=== PATIENT | female | born 1955 | race Caucasian/White ===

== ENCOUNTER 2018-01-17 08:03 | Outpatient (CLI) | payer MEDICARE ==
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
[2018-01-17] MEDS ORDERED: Iopamidol 370 76% 100 ML VIAL ONE (13:21)
== END 2018-01-17 08:04 | disposition home or self-care (01) ==
LOC: CT 08:03
PROVIDERS: ATTEND Family Medicine
DX: R10.30 Lower abdominal pain, unspecified (principal); Z98.890 Other specified postprocedural states
CPT/HCPCS: 74177

== ENCOUNTER 2018-03-18 13:55 | Outpatient (CLI) | payer MEDICARE | END 2018-03-18 13:56 | disposition home or self-care (01) | LOC: BICMAMMO 13:55 | DX: Z12.31 Encounter for screening mammogram for malignant neoplasm of breast (principal); M81.0 Age-related osteoporosis without current pathological fracture; M85.88 Other specified disorders of bone density and structure, other site; Z80.3 Family history of malignant neoplasm of breast | CPT/HCPCS: 77063; 77067; 77080 ==

== ENCOUNTER 2018-09-08 18:34 | Emergency (ER) | payer MEDICARE ==
[2018-09-08] MEDS ORDERED: HYDROcodone/Acetaminophen 5/325 mg Tablet ONE (20:13)
--- NOTE | 2018-09-08 20:30 | CT ---
CT BRAIN WITHOUT CONTRAST: HISTORY: History of fall with head injury. COMPARISON: 08/20/2008 FINDINGS: The area of encephalomalacia involving both frontal lobes is stable. No definite acute infarct, hemo rrhage, or hydrocephalus is present. The septum pellucidum and third ventricle are midline. The sku ll and extracranial soft tissues appear within normal limits. There is stable hyperdense material se en within the left ear, which is nonspecific. IMPRESSION: 1. No acute intracranial abnormality. 2. Stable area of encephalomalacia involving both frontal lobes. POS: [facility]
--- NOTE | 2018-09-08 20:33 | CT ---
CT CERVICAL SPINE WITHOUT CONTRAST: INDICATIONS: History of fall with neck pain. COMPARISON: None. FINDINGS: There is severe spondylosis of the cervical spine. No acute fracture or subluxation is evident. The craniocervical junction appears within normal limits. Prevertebral soft tissues are normal appearin g. IMPRESSION: No acute osseous abnormality. POS: [facility]
--- NOTE | 2018-09-08 20:34 | RAD ---
AP VIEW PELVIS: INDICATIONS: Fall with right hip pain. COMPARISON: None. FINDINGS: No acute fracture or subluxation is evident. There is spinal instrumentation at L5-S1. There is pos terolateral interbody fusion from L4 through S1. There is mild degenerative change within both hips. IMPRESSION: No acute osseous abnormality. POS: [facility]
--- NOTE | 2018-09-08 20:37 | RAD ---
RIGHT HIP TWO VIEWS: INDICATIONS: Fall with right hip pain. COMPARISON: None. FINDINGS: No acute fracture or subluxation is evident. There is mild degenerative change of the right hip. Th ere is extensive post surgical change of the lower lumbar spine. IMPRESSION: No acute osseous abnormality. POS: [facility]
--- NOTE | 2018-09-08 20:46 | RAD ---
CHEST TWO VIEWS: HISTORY: The patient slipped and fell. Post traumatic pain. COMPARISON: 03/12/2008 FINDINGS: Normal cardiac silhouette. Pulmonary vessels and hilum are normal. Costophrenic angles are clear. No consolidation or mass. No pneumothorax or osseous abnormalities. Lumbar fusion hardware is incompletely evaluated. IMPRESSION: No acute cardiopulmonary process. POS: [facility]
--- NOTE | 2018-09-08 20:48 | RAD ---
LUMBAR SPINE THREE VIEWS: INDICATIONS: Fall with low back pain. COMPARISON: 08/26/2009 FINDINGS: There is posterolateral spinal fusion from the visualized T10 through the S1 vertebral level. Carlin ctomy changes are seen at L5-S1. There is posterolateral spinal instrumentation at L5-S1. No acute fracture or subluxation is evident. There is diffuse osteopenia. IMPRESSION: 1. Stable multilevel thoracolumbar spinal fusion and instrumentation. 2. No acute fracture or subluxation is demonstrated. POS: [facility]
--- NOTE | 2018-09-08 20:51 | RAD ---
THORACIC SPINE THREE VIEWS: INDICATIONS: Fall with back pain. COMPARISON: Prior exam dated 10/07/2009. FINDINGS: The posterolateral spinal fusion involving the thoracolumbar spine, extending from approximately the T10 vertebral level through the sacrum is similar appearing. There is diffuse osteopenia. Mild supe rior endplate irregularity of the suspected T6 vertebral level is stable. Multilevel spondylosis of the thoracic spine is similar appearing. IMPRESSION: No acute osseous abnormality. POS: [facility]
== END 2018-09-08 22:33 | disposition home or self-care (01) ==
LOC: ERS 18:34
DX: S09.90XA Unspecified injury of head, initial encounter (principal); M54.9 Dorsalgia, unspecified; M25.551 Pain in right hip; E03.9 Hypothyroidism, unspecified; I10 Essential (primary) hypertension; K21.9 Gastro-esophageal reflux disease without esophagitis; F41.9 Anxiety disorder, unspecified; F32.9 Major depressive disorder, single episode, unspecified; Z79.899 Other long term (current) drug therapy; W22.8XXA Striking against or struck by other objects, initial encounter; Y92.091 Bathroom in other non-institutional residence as the place of occurrence of the external cause
CPT/HCPCS: 70450; 71046; 72072; 72100; 72125; 72170

== ENCOUNTER 2018-11-27 14:34 | Outpatient (CLI) | payer MEDICARE ==
--- NOTE | 2018-11-27 16:46 | RAD ---
KUB: 11/27/18 INDICATION: History of renal stones. COMPARISON: Prior CT of the abdomen and pelvis dated 01/17/18. No suspicious calcification is evident. There is mild amount of retained stool in the colon. Thoracol umbar spinal fusion is similar appearing. Instrumentation at L5-S1 is similar appearing. Lung bases a re clear. Bowel gas pattern is unobstructed. IMPRESSION: No suspicious calcifications POS: [facility]
== END 2018-11-27 14:35 | disposition home or self-care (01) ==
LOC: RAD 14:34
PROVIDERS: ATTEND Urology
DX: N20.0 Calculus of kidney (principal); R31.9 Hematuria, unspecified
CPT/HCPCS: 74018; 81001; 87086; 88112

== ENCOUNTER 2019-03-20 12:40 | Outpatient (CLI) | payer MEDICARE ==
--- NOTE | 2019-03-20 13:59 | MMO ---
Bilateral MAMMO Bilat Screen [facility]. CLINICAL HISTORY: Patient is 63 years old and is seen for screening. The patient has the following family history of breast cancer: 2 maternal aunts. The patient has no personal history of cancer. VIEWS: The views performed were: bilateral craniocaudal with tomosynthesis and bilateral mediolateral oblique with tomosynthesis. FILMS COMPARED: The present examination has been compared to prior imaging studies performed at [facility] on 07/02/2007, 07/08/2008, 03/14/2016, 03/15/2017 and 03/18/2018. MAMMOGRAM FINDINGS: The breasts are extremely dense, which may lower the sensitivity of mammography. There are no suspicious masses, suspicious calcifications, or new areas of architectural distortion. IMPRESSION: THERE IS NO MAMMOGRAPHIC EVIDENCE OF MALIGNANCY. A ROUTINE FOLLOW-UP MAMMOGRAM IN 1 YEAR IS RECOMMENDED. THE RESULTS OF THIS EXAM WERE SENT TO THE PATIENT. ACR BI-RADS Category 1 - Negative MAMMOGRAPHY NOTE: 1. A negative mammogram report should not delay a biopsy if a dominant of clinically suspicious mass is present. 2. Approximately 10% to 15% of breast cancers are not detected by mammography. 3. Adenosis and dense breasts may obscure an underlying neoplasm.
== END 2019-03-20 12:41 | disposition home or self-care (01) ==
LOC: BICMAMMO 12:40
DX: Z12.31 Encounter for screening mammogram for malignant neoplasm of breast (principal); Z80.3 Family history of malignant neoplasm of breast
CPT/HCPCS: 77063; 77067

== ENCOUNTER 2019-06-27 09:27 | Outpatient (CLI) | payer MEDICARE ==
[2019-06-27 15:04] LABS: #Basophils 0.1 thou/uL (0.0-0.2); #Eosinphils 0.1 thou/uL (0.0-0.7); #Lymphocytes 1.5 thou/uL (1.20-3.40); #Monocytes 0.4 thou/uL (0.11-0.59); #Neutrophils 2.3 thou/uL (1.40-6.50); %Basophils 1.2 % (0.0-1.0); %Eosinophils 1.9 % (0.0-10.0); %Lymphocytes 34.4 % (21.0-51.0); %Monocytes 10.2 % (0.0-10.0); %Neutrophils 52.3 % (42.0-75.0); Hemoglobin 13.2 g/dL (12.0-16.0); Mean Corpuscular HGB CONC 33.2 g/dL (32.0-36.0); Mean Corpuscular Hemoglobin 33.3 pg (27.0-31.0); Mean Platelet Volume 6.5 fL (7.4-10.4); Platelet Count 259 thou/uL (130-400); RBC Distribution Width 11.9 % (11.5-14.5); Red Blood Cell (RBC) Count 3.96 mill/uL (4.20-5.40); White Blood Cell (WBC) Count 4.3 thou/uL (4.8-10.8)
[2019-06-27 15:17] LABS: Bilirubin Negative (Negative); Blood, Urine Negative (Negative); Clarity Clear (Clear); Glucose, Urine (Dipstick) Normal (Negative); Leukocyte Negative Leu/uL (Negative); Nitrite Negative (Negative); Protein, Urine (Dipstick) Negative (Neg-Trace); RBC/HPF 0-3 HPF (0-3); Squamous Epithelial None Seen HPF (0-3); Urobilinogen Normal mg/dL (Less than 2); WBC/HPF 0-3 HPF (0-3)
[2019-06-27 15:26] LABS: Bacteria/HPF None Seen HPF (None Seen)
--- NOTE | 2019-06-27 16:33 | EKG ---
Test Reason : Blood Pressure : / mmHG Vent. Rate : 076 BPM Atrial Rate : 076 BPM P-R Int : 136 ms QRS Dur : 082 ms QT Int : 380 ms P-R-T Axes : 084 064 063 degrees QTc Int : 427 ms Normal sinus rhythm Normal ECG When compared with ECG of 14-APR-2016 09:41, (Unconfirmed) Vent. rate has decreased BY 40 BPM T wave amplitude has increased in Lateral leads Confirmed by SISSY HOFFMAN, SPaco ([id number]) on 06/27/2019 4:33:07 PM Referred By: FREEMAN Confirmed By:DR. Arun SHEEHAN MD
[2019-06-30 11:58] LABS: CCP IgG Antibody 0.8 EliAU/mL (<7 Negative); EliA RAS New Method **** NEW METHOD ****; Rheumatoid Factor IgM Antibody Less than 0.5 IU/mL (<3.5 Negative)
[2019-06-30 14:09] LABS: Lyme IgG/IgM AB <0.91 ISR (0.00-0.90)
== END 2019-06-27 09:28 | disposition home or self-care (01) ==
LOC: LABBT 09:27
PROVIDERS: ATTEND Orthopaedic Surgery Hand Surgery
DX: Z01.818 Encounter for other preprocedural examination (principal); S63.203A Unspecified subluxation of left middle finger, initial encounter
CPT/HCPCS: 81001; 83520; 85025; 85652; 86200; 86618; 93005; 93010

== ENCOUNTER 2019-06-30 13:09 | Day surgery (SDC) | payer MEDICARE ==
[2019-06-27 14:02] VITALS: BMI 20.1
[2019-06-30] MEDS ORDERED: Midazolam HCl 2 mg/2 ml Vial ONE (15:11)
[2019-06-30] MEDS ORDERED: Clindamycin/D5W 600 mg/50 ml Premix Bag ONE (15:47)
[2019-06-30] MEDS ORDERED: Bupivacaine PF 0.5% 30 ML VIAL ONE (17:38)
[2019-06-30] MEDS ORDERED: Bacitracin Zinc Ointment 30 gm TUBE ONE (17:38)
[2019-06-30] MEDS ORDERED: Sodium Chloride 0.9% 0 ML ONE (17:38)
[2019-06-30] MEDS ORDERED: Fentanyl 100 MCG/2 ML VIAL ONE ×2 (19:14→21:50)
[2019-06-30] MEDS ORDERED: Ondansetron PF 4 MG/2 ML Vial ONE (22:07)
[2019-06-30] MEDS ORDERED: HYDROcodone/Acetaminophen 5/325 mg Tablet ONE (22:33)
--- NOTE | 2019-07-01 04:48 | OP ---
DATE OF PROCEDURE: 06/30/2019 PREOPERATIVE DIAGNOSIS: Left middle finger volar plate rupture with dislocation of proximal interphalangeal joint, left middle finger. POSTOPERATIVE DIAGNOSIS: Dislocatable, direct dorsally without complete collateral ligament tear, but complete volar plate laceration. PROCEDURES PERFORMED: 1. Open treatment of dislocation of proximal interphalangeal joint, left middle finger. 2. Open volar plate reconstruction back to bone of approximately 85% and 15% repair. 3. C-arm supervision. COMPLICATIONS: None. IMPLANT: [place], mini (approximately 5-mm anchor). TOURNIQUET TIME: 48 minutes. ESTIMATED BLOOD LOSS: Less than 20 mL. INJECTABLE: 20 mL of 0.5% Marcaine, 10 mL prior to procedure and 10 after the procedure. DESCRIPTION OF PROCEDURE: After successful general LMA technique, the limb was prepped and draped. We injected the first 10 mL. I outlined a Dania-type incision and centered on the PIP joint palmarly. After exsanguination of the limb and inflation of the tourniquet to 250 mmHg pressure, we entered the incision, carried through skin and subcutaneous tissue, identified the neurovascular bundles and protected them. We then entered the sheath just proximal to the A3 glory, and found the dissection down to volar plate. The collateral ligament did not appear to be ruptured off bone. We then dissected down the volar plate and saw that it was completely lifted off the neck and articular surface of the proximal phalanx at the PIP joint. There was a small remnant 2 mm of hinge, intact, but it was not enough to resist palmar-directed forces. We then made a trough beginning 2 mm proximal articular reflection, this was done with multiple 0.045 K-wires and C-arm was used to help palletizer the depth. We then used a curette to connect these areas, and then crossing this region at approximately 40-degree angle, we placed a Mitek anchor with a heavy suture. We then used a 5-0 Prolene to repair the hinge that was still partially intact, and then for the ruptured part, we used the heavy suture with standard [id number] knot. We then was able to reduce the joint at approximately -15 degrees of flexion, it was stable here, and we could achieve full extension. On full extension, there was no collateral laxity, 45 degrees no laxity in collateral nerves, definitely no palmarly-directed force laxity. Deflated tourniquet and obtained hemostasis. We repaired the area where we had entered the A3 glory with a 5-0 Prolene in interrupted [id number] pattern. We deflated tourniquet and hemostasis was excellent. The digital nerve and artery were intact. We then obtained hemostasis. We closed the skin with interrupted 4-0 nylon in a simple pattern. The patient had a dorsal splint at 30 degrees of flexion when we knew we had excellent stability and we will begin active motion program protecting her from valgus and varus forces in 2 weeks. Return to clinic at that time. Job ID: [id number]
== END 2019-06-30 22:50 | disposition home or self-care (01) ==
LOC: SDC 13:09
PROVIDERS: ATTEND Orthopaedic Surgery Hand Surgery
PROC: 0RQX0ZZ Repair Left Finger Phalangeal Joint, Open Approach (ICD-10-PCS; principal; 2019-06-30)
DX: S63.283A Dislocation of proximal interphalangeal joint of left middle finger, initial encounter (principal); S63.633A Sprain of interphalangeal joint of left middle finger, initial encounter; K21.9 Gastro-esophageal reflux disease without esophagitis; G43.719 Chronic migraine without aura, intractable, without status migrainosus; I10 Essential (primary) hypertension; M19.90 Unspecified osteoarthritis, unspecified site; Z88.0 Allergy status to penicillin; Z88.1 Allergy status to other antibiotic agents; Z91.040 Latex allergy status; Z88.8 Allergy status to other drugs, medicaments and biological substances; Z88.6 Allergy status to analgesic agent; Z91.018 Allergy to other foods; Z79.899 Other long term (current) drug therapy; W06.XXXA Fall from bed, initial encounter
CPT/HCPCS: 76000; C1713; J2250; J2405; J3010; J3490; Q4049; S0020

== ENCOUNTER 2020-01-23 08:53 | Outpatient (CLI) | payer MEDICARE ==
--- NOTE | 2020-01-23 10:16 | BD ---
BONE DENSITOMETRY USING DEXA: HISTORY: Postmenopausal screening for osteoporosis. FINDINGS: Right Hip: Femoral Neck: 0.546 T-Score: -2.7 Z-Score: -1.4 Total Femur: 0.721 T-Score: -1.8 Z-Score: -0.8 Left Hip: Femoral Neck: 0.628 T-Score: -2.0 Z-Score: -0.6 Total Femur: 0.732 T-Score: -1.7 Z-Score: -0.7 The 10-year fracture risk for a major osteoporotic fracture is 12% and for a hip fracture is 2.6%. Impression: Osteoporosis. POS: [facility]
== END 2020-01-23 08:54 | disposition home or self-care (01) ==
LOC: BICMAMMO 08:53
PROVIDERS: ATTEND Family Medicine
DX: Z13.820 Encounter for screening for osteoporosis (principal); M81.0 Age-related osteoporosis without current pathological fracture
CPT/HCPCS: 77080

== ENCOUNTER 2020-03-22 13:15 | Outpatient (CLI) | payer MEDICARE ==
--- NOTE | 2020-03-22 14:57 | MMO ---
Bilateral MAMMO Bilat Screen [facility]. CLINICAL HISTORY: Patient is 64 years old and is seen for screening. The patient has the following family history of breast cancer: 2 maternal aunts, at age 65. The patient has no personal history of cancer. VIEWS: The views performed were: bilateral craniocaudal with tomosynthesis and bilateral mediolateral oblique with tomosynthesis. FILMS COMPARED: The present examination has been compared to prior imaging studies performed at [facility] on 03/14/2016, 03/15/2017, 03/18/2018 and 03/20/2019. This study has been interpreted with the assistance of computer-aided detection. MAMMOGRAM FINDINGS: The breasts are extremely dense, which may lower the sensitivity of mammography. There are no suspicious masses, suspicious calcifications, or new areas of architectural distortion. IMPRESSION: THERE IS NO MAMMOGRAPHIC EVIDENCE OF MALIGNANCY. A ROUTINE FOLLOW-UP MAMMOGRAM IN 1 YEAR IS RECOMMENDED. THE RESULTS OF THIS EXAM WERE SENT TO THE PATIENT. ACR BI-RADS Category 1 - Negative MAMMOGRAPHY NOTE: 1. A negative mammogram report should not delay a biopsy if a dominant of clinically suspicious mass is present. 2. Approximately 10% to 15% of breast cancers are not detected by mammography. 3. Adenosis and dense breasts may obscure an underlying neoplasm. Reported by: VIOLA PRATER MD Electonically Signed: [id number]
== END 2020-03-22 13:16 | disposition home or self-care (01) ==
LOC: BICMAMMO 13:15
PROVIDERS: ATTEND Family Medicine
DX: Z12.31 Encounter for screening mammogram for malignant neoplasm of breast (principal); Z80.3 Family history of malignant neoplasm of breast
CPT/HCPCS: 77063; 77067

== ENCOUNTER 2020-03-30 12:33 | Outpatient (CLI) | payer MEDICARE ==
--- NOTE | 2020-03-30 15:21 | CT ---
CT ABDOMEN AND PELVIS WITHOUT CONTRAST STONE PROTOCOL: HISTORY: Groin pain. COMPARISON: CT abdomen and pelvis 01/17/2018. FINDINGS: Lung bases are clear. Small volume pericardial fluid. Ingested high-density material within the gastric lumen. No nephroureterolithiasis or hydroureteral nephrosis. No secondary evidence of a recently passed sto ne. Right gonadal vein phleboliths. Noncontrast evaluation of the liver, spleen, and pancreas appears unremarkable. Adrenal glands appea r unremarkable. There is posterior spinal fusion hardware at L5-S1 with diskectomy change and anterior locking screw. Laminectomy changes throughout the lumbar spine with extensive bone grafting. High-grade degenerat casi disease of the pubic symphysis with enthesopathic change of both adductor longus tendons. Modera te degenerative disease of both SI joints. No dilated loops of large or small bowel. No free intraperitoneal gas or fluid. IMPRESSION: 1. No nephroureterolithiasis or hydroureteral nephrosis. No secondary evidence of recently passed s tone. 2. No acute inflammatory process in the abdomen or pelvis. 3. 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 4. Extensive postoperative changes of the lumbar spine. POS: [facility]
== END 2020-03-30 12:34 | disposition home or self-care (01) ==
LOC: SCSCT 12:33
PROVIDERS: ATTEND Urology
DX: N20.0 Calculus of kidney (principal); R35.0 Frequency of micturition; M77.9 Enthesopathy, unspecified; N94.9 Unspecified condition associated with female genital organs and menstrual cycle; Z98.1 Arthrodesis status
CPT/HCPCS: 74176

== ENCOUNTER 2020-12-30 14:32 | Outpatient (CLI) | payer MEDICARE | END 2020-12-30 14:33 | disposition home or self-care (01) | LOC: BICRAD 14:32 | PROVIDERS: ATTEND Internal Medicine Rheumatology | DX: M06.4 Inflammatory polyarthropathy (principal); R91.8 Other nonspecific abnormal finding of lung field | CPT/HCPCS: 71046 ==

== ENCOUNTER 2021-02-28 13:35 | Outpatient (CLI) | payer MEDICARE | END 2021-02-28 13:36 | disposition home or self-care (01) | LOC: BICCT 13:35 | PROVIDERS: ATTEND Internal Medicine Rheumatology | DX: M05.10 Rheumatoid lung disease with rheumatoid arthritis of unspecified site (principal); J84.9 Interstitial pulmonary disease, unspecified | CPT/HCPCS: 71250 ==

== ENCOUNTER 2021-03-27 17:45 | Inpatient (IN) | payer OTHER, MEDICARE ==
[~2021-03-27 17:45] MED LIST: Iopamidol-370 76% 500 ML 1 ML ONE
[2021-03-27] MEDS ORDERED: Lidocaine 1% w/Epinephrine 1:100K 20 ML VIAL ONE ×2 (18:01→18:03)
[2021-03-27] MEDS ORDERED: Fentanyl 100 MCG/2 ML VIAL ONE ×2 (18:03→19:03)
[2021-03-27 18:19] LABS: #Eosinphils 0.1 thou/uL (0.0-0.7); #Lymphocytes 3.4 thou/uL (1.20-3.40); #Monocytes 0.6 thou/uL (0.11-0.59); #Neutrophils 6.1 thou/uL (1.40-6.50); %Basophils 0.4 % (0.0-1.0); %Eosinophils 1.4 % (0.0-10.0); %Monocytes 6.2 % (0.0-10.0); Hemoglobin 11.2 g/dL (12.0-16.0); Mean Corpuscular HGB CONC 33.5 g/dL (32.0-36.0); Mean Corpuscular Hemoglobin 35.4 pg (27.0-31.0); Mean Platelet Volume 7.1 fL (7.4-10.4); Platelet Count 259 thou/uL (130-400); RBC Distribution Width 13.8 % (11.5-14.5); Red Blood Cell (RBC) Count 3.16 mill/uL (4.20-5.40); White Blood Cell (WBC) Count 10.4 thou/uL (4.8-10.8)
[2021-03-27 18:26] LABS: INR-International Normal Ratio 1.1; PTT 23.9 sec (22.9-36.1); Prothrombin Time 14.1 sec (12.0-14.7)
[2021-03-27 18:34] LABS: MDiff Complete? YES; Macrocytosis SLIGHT = 6-15 cells (100X) (0-5/hpf); Platelet Morphology Comment Appears Adequate; Polychromasia SLIGHT = 2-3 cells (100X) (0-2/hpf)
[2021-03-27 18:35] LABS: Acetaminophen Less than 6.0 mcg/mL (10.0-30.0); Alcohol Less than 10 mg/dL (Less than 10); CK (CPK) 232 U/L (29-168); Salicylate Less than 8.0 mg/dL (15.0-30.0)
[2021-03-27 18:36] LABS: ALT (SGPT) 33 U/L (8-55); AST (SGOT) 50 U/L (5-34); Alkaline Phosphatase 52 U/L (40-110); Anion Gap 14 mmol/L (10-20); BUN (Urea Nitrogen) 15 mg/dL (9.8-20.1); Bilirubin, Total 0.5 mg/dL (0.2-1.2); Calc. Creatinine Clearance 0 mL/min (70-130); Calcium 8.9 mg/dL (7.8-10.44); Carbon Dioxide 21 mmol/L (23-31); Chloride 109 mmol/L (98-107); Globulin 1.9 g/dL (2.4-3.5); Glucose 136 mg/dL (80-115); Lipase 28 U/L (8-78); Potassium 3.7 mmol/L (3.5-5.1); Protein, Total 5.9 g/dL (5.8-8.1); Sodium 140 mmol/L (136-145)
[2021-03-27] MEDS ORDERED: HYDROcodone/Acetaminophen 7.5/325 mg Tablet PO PRN (20:40)
[2021-03-27] MEDS ORDERED: Dextrose 5% in Water 1,000 ML IV PRN (20:42)
[2021-03-27] MEDS ORDERED: Dextrose 50% Abboject 50 ML SYRINGE SLOW IVP PRN (20:42)
[2021-03-27] MEDS ORDERED: Ondansetron PF 4 MG/2 ML Vial IVP PRN (20:42)
[2021-03-27] MEDS ORDERED: Famotidine/PF 20 mg/2ml Vial SLOW IVP SCH (21:00)
[2021-03-27 21:05] LABS: Bacteria/HPF None Seen HPF (None Seen); Bilirubin Negative (Negative); Blood, Urine 2+ (Negative); Clarity Clear (Clear); Glucose, Urine (Dipstick) Normal (Negative); Ketone, Urine Negative (Negative); Leukocyte Negative Leu/uL (Negative); Nitrite Negative (Negative); Protein, Urine (Dipstick) 50 mg/dL (Neg-Trace); Squamous Epithelial 0-3 HPF (0-3); Urobilinogen Normal mg/dL (Less than 2); WBC/HPF 0-3 HPF (0-3)
[2021-03-27 21:16] LABS: Specific Gravity, Urine 1.052 (1.002-1.036)
[2021-03-27 21:21] LABS: Amphetamine Not Detected (NotDetected); Barbiturates Screen Not Detected (NotDetected); Benzodiazepine Screen Not Detected (NotDetected); Cocaine Metabolite Screen Not Detected (NotDetected); Medtox Reader # READER 4; Methadone Not Detected (NotDetected); Methamphetamine Not Detected (NotDetected); Opiate Screen Detected (NotDetected); Oxycodone Screen Not Detected (NotDetected); Phencyclidine (PCP) Not Detected (NotDetected); THC/Cannabinoid Screen Not Detected (NotDetected); Tricyclic Screen Not Detected (NotDetected)
[2021-03-27 21:22] LABS: Medtox Control Line Valid? VALID (VALID)
[2021-03-27] MEDS ORDERED: Lactated Ringer's 1,000 ML IV SCH (23:30)
[2021-03-27] MEDS ORDERED: Acetaminophen 325 MG TAB PO SCH (23:59)
[2021-03-28] MEDS: Gabapentin 100 MG CAP PO SCH ×2 (00:16→08:17)
[2021-03-28] MEDS: Topiramate 25 MG TAB PO SCH ×3 (00:16→20:59)
[2021-03-28] MEDS: Aripiprazole 15 MG TAB PO SCH ×2 (00:17→20:59)
[2021-03-28] MEDS: traZODone HCl 50 MG TAB PO SCH ×2 (00:17→21:00)
[2021-03-28] MEDS: SUMAtriptan Succinate 50 MG TAB PO PRN ×3 (00:27→15:34)
[2021-03-28 00:50] VITALS: BMI 20.5
[2021-03-28] MEDS ORDERED: HYDROcodone/Acetaminophen 7.5/325 mg Tablet PO PRN (01:57)
[2021-03-28] MEDS: Levothyroxine Sodium 25 MCG TAB PO SCH (04:34)
[2021-03-28 05:43] LABS: #Lymphocytes 1.1 thou/uL (1.20-3.40); #Monocytes 0.8 thou/uL (0.11-0.59); #Neutrophils 8.6 thou/uL (1.40-6.50); %Basophils 0.3 % (0.0-1.0); %Eosinophils 0.2 % (0.0-10.0); %Lymphocytes 10.4 % (21.0-51.0); %Monocytes 7.9 % (0.0-10.0); %Neutrophils 81.2 % (42.0-75.0); Hemoglobin 11.1 g/dL (12.0-16.0); Mean Platelet Volume 7.1 fL (7.4-10.4); Platelet Count 168 thou/uL (130-400); RBC Distribution Width 13.7 % (11.5-14.5); Red Blood Cell (RBC) Count 3.17 mill/uL (4.20-5.40); White Blood Cell (WBC) Count 10.6 thou/uL (4.8-10.8)
[2021-03-28 06:00] LABS: INR-International Normal Ratio 1.1; PTT 28.5 sec (22.9-36.1); Prothrombin Time 14.4 sec (12.0-14.7)
[2021-03-28] MEDS ORDERED: Acetaminophen 325 MG TAB PO SCH (06:00)
[2021-03-28] MEDS ORDERED: Levothyroxine Sodium 50 MCG TAB PO SCH (06:00)
[2021-03-28 06:08] LABS: Anion Gap 12 mmol/L (10-20); BUN (Urea Nitrogen) 14 mg/dL (9.8-20.1); Calc. Creatinine Clearance 63 mL/min (70-130); Calcium 8.8 mg/dL (7.8-10.44); Carbon Dioxide 23 mmol/L (23-31); Chloride 107 mmol/L (98-107); Glucose 123 mg/dL (80-115); Magnesium 2.1 mg/dL (1.6-2.6); Potassium 3.6 mmol/L (3.5-5.1); Sodium 138 mmol/L (136-145)
[2021-03-28] MEDS: Lactinex Tablet PO SCH (08:16)
[2021-03-28] MEDS: Famotidine 20 MG TAB PO SCH ×2 (08:16→20:59)
[2021-03-28] MEDS: DULoxetine 60 MG CAP PO SCH (08:17)
[2021-03-28] MEDS: Cholecalciferol 1,000 UNITS (25 MCG) TAB PO SCH (08:18)
[2021-03-28] MEDS: Benztropine 1 MG TAB PO SCH (08:18)
[2021-03-28] MEDS: Rosuvastatin 5 MG TAB PO SCH (08:18)
[2021-03-28] MEDS: Enoxaparin Sodium 40 MG/0.4 ML SYRINGE SC SCH (09:06)
[2021-03-28] MEDS ORDERED: cloNIDine 0.1 MG TAB PO SCH ×2 (10:45→12:00)
[2021-03-28 11:18] LABS: SARS-CoV-2 PCR by NAA Not Detected (NotDetected)
[2021-03-28] MEDS: traMADol HCl 50 MG TAB PO SCH ×3 (11:33→23:24)
[2021-03-28] MEDS: Gabapentin 300 MG CAP PO SCH ×2 (15:33→20:59)
[2021-03-28] MEDS: cloNIDine 0.1 MG TAB PO SCH (21:00)
[2021-03-29] MEDS: traMADol HCl 50 MG TAB PO SCH ×4 (05:13→23:19)
[2021-03-29] MEDS: Levothyroxine Sodium 25 MCG TAB PO SCH (05:13)
[2021-03-29 05:57] LABS: #Basophils 0.1 thou/uL (0.0-0.2); #Eosinphils 0.1 thou/uL (0.0-0.7); #Lymphocytes 1.8 thou/uL (1.20-3.40); #Neutrophils 7.8 thou/uL (1.40-6.50); %Basophils 0.6 % (0.0-1.0); %Eosinophils 0.8 % (0.0-10.0); %Lymphocytes 16.5 % (21.0-51.0); %Monocytes 9.3 % (0.0-10.0); %Neutrophils 72.8 % (42.0-75.0); Hemoglobin 10.2 g/dL (12.0-16.0); Mean Corpuscular HGB CONC 32.5 g/dL (32.0-36.0); Mean Corpuscular Hemoglobin 34.9 pg (27.0-31.0); Mean Platelet Volume 7.5 fL (7.4-10.4); Platelet Count 153 thou/uL (130-400); RBC Distribution Width 13.7 % (11.5-14.5); Red Blood Cell (RBC) Count 2.93 mill/uL (4.20-5.40); White Blood Cell (WBC) Count 10.8 thou/uL (4.8-10.8)
[2021-03-29 06:19] LABS: Anion Gap 8 mmol/L (10-20); BUN (Urea Nitrogen) 14 mg/dL (9.8-20.1); Calc. Creatinine Clearance 54 mL/min (70-130); Calcium 8.5 mg/dL (7.8-10.44); Carbon Dioxide 24 mmol/L (23-31); Chloride 104 mmol/L (98-107); Glucose 117 mg/dL (80-115); Potassium 3.9 mmol/L (3.5-5.1); Sodium 132 mmol/L (136-145)
[2021-03-29] MEDS: Lactinex Tablet PO SCH (08:28)
[2021-03-29] MEDS: cloNIDine 0.1 MG TAB PO SCH ×2 (08:28→20:02)
[2021-03-29] MEDS: Rosuvastatin 5 MG TAB PO SCH (08:28)
[2021-03-29] MEDS: Gabapentin 300 MG CAP PO SCH ×3 (08:28→20:02)
[2021-03-29] MEDS: DULoxetine 60 MG CAP PO SCH (08:28)
[2021-03-29] MEDS: Cholecalciferol 1,000 UNITS (25 MCG) TAB PO SCH (08:28)
[2021-03-29] MEDS: Benztropine 1 MG TAB PO SCH (08:29)
[2021-03-29] MEDS: Enoxaparin Sodium 40 MG/0.4 ML SYRINGE SC SCH (08:29)
[2021-03-29] MEDS: Topiramate 25 MG TAB PO SCH ×2 (08:31→20:02)
[2021-03-29] MEDS: SUMAtriptan Succinate 50 MG TAB PO PRN (14:31)
[2021-03-29] MEDS: Aripiprazole 15 MG TAB PO SCH (20:01)
[2021-03-29] MEDS: traZODone HCl 50 MG TAB PO SCH (20:02)
[2021-03-30] MEDS: SUMAtriptan Succinate 50 MG TAB PO PRN (03:19)
[2021-03-30] MEDS: traMADol HCl 50 MG TAB PO SCH (05:17)
[2021-03-30] MEDS: Levothyroxine Sodium 25 MCG TAB PO SCH (05:17)
[2021-03-30 08:17] LABS: #Eosinphils 0.1 thou/uL (0.0-0.7); #Monocytes 0.9 thou/uL (0.11-0.59); %Basophils 0.4 % (0.0-1.0); %Eosinophils 0.8 % (0.0-10.0); %Lymphocytes 10.1 % (21.0-51.0); %Monocytes 8.6 % (0.0-10.0); Hemoglobin 10.5 g/dL (12.0-16.0); Mean Corpuscular HGB CONC 31.9 g/dL (32.0-36.0); Mean Corpuscular Hemoglobin 34.1 pg (27.0-31.0); Mean Platelet Volume 7.2 fL (7.4-10.4); Platelet Count 169 thou/uL (130-400); RBC Distribution Width 13.3 % (11.5-14.5); Red Blood Cell (RBC) Count 3.07 mill/uL (4.20-5.40)
[2021-03-30] MEDS: Rosuvastatin 5 MG TAB PO SCH (08:27)
[2021-03-30] MEDS: Polyethylene Glycol 3350 17 GM Packet PO SCH (08:27)
[2021-03-30] MEDS: Gabapentin 300 MG CAP PO SCH ×3 (08:28→20:30)
[2021-03-30] MEDS: Lactinex Tablet PO SCH (08:28)
[2021-03-30] MEDS: Cholecalciferol 1,000 UNITS (25 MCG) TAB PO SCH (08:28)
[2021-03-30] MEDS: Topiramate 25 MG TAB PO SCH ×2 (08:28→20:31)
[2021-03-30] MEDS: Enoxaparin Sodium 40 MG/0.4 ML SYRINGE SC SCH (08:29)
[2021-03-30] MEDS: Benztropine 1 MG TAB PO SCH (08:29)
[2021-03-30] MEDS: DULoxetine 60 MG CAP PO SCH (08:29)
[2021-03-30] MEDS: cloNIDine 0.1 MG TAB PO SCH ×2 (08:30→20:30)
[2021-03-30 08:34] LABS: Anion Gap 10 mmol/L (10-20); BUN (Urea Nitrogen) 12 mg/dL (9.8-20.1); Calc. Creatinine Clearance 63 mL/min (70-130); Calcium 8.3 mg/dL (7.8-10.44); Carbon Dioxide 25 mmol/L (23-31); Chloride 99 mmol/L (98-107); Glucose 106 mg/dL (80-115); Magnesium 1.8 mg/dL (1.6-2.6); Sodium 130 mmol/L (136-145)
[2021-03-30] MEDS: traMADol HCl 50 MG TAB PO PRN ×2 (11:38→20:29)
[2021-03-30] MEDS: HYDROcodone/Acetaminophen 7.5/325 mg Tablet PO PRN (15:55)
[2021-03-30] MEDS: traZODone HCl 50 MG TAB PO SCH (20:30)
[2021-03-30] MEDS: Aripiprazole 15 MG TAB PO SCH (20:30)
[2021-03-31] MEDS: HYDROcodone/Acetaminophen 7.5/325 mg Tablet PO PRN ×2 (00:18→21:12)
[2021-03-31] MEDS: traMADol HCl 50 MG TAB PO PRN ×2 (05:21→18:41)
[2021-03-31] MEDS: Levothyroxine Sodium 25 MCG TAB PO SCH (05:21)
[2021-03-31] MEDS: Enoxaparin Sodium 40 MG/0.4 ML SYRINGE SC SCH (08:50)
[2021-03-31] MEDS: DULoxetine 60 MG CAP PO SCH (08:52)
[2021-03-31] MEDS: Lactinex Tablet PO SCH (08:52)
[2021-03-31] MEDS: Rosuvastatin 5 MG TAB PO SCH (08:52)
[2021-03-31] MEDS: Cholecalciferol 1,000 UNITS (25 MCG) TAB PO SCH (08:53)
[2021-03-31] MEDS: Benztropine 1 MG TAB PO SCH (08:53)
[2021-03-31] MEDS: Gabapentin 300 MG CAP PO SCH ×3 (08:53→19:54)
[2021-03-31] MEDS: Polyethylene Glycol 3350 17 GM Packet PO SCH (08:54)
[2021-03-31] MEDS: cloNIDine 0.1 MG TAB PO SCH ×2 (08:54→19:56)
[2021-03-31] MEDS: Topiramate 25 MG TAB PO SCH ×2 (08:54→20:26)
[2021-03-31] MEDS: traZODone HCl 50 MG TAB PO SCH (19:56)
[2021-03-31] MEDS: Aripiprazole 15 MG TAB PO SCH (20:26)
[2021-04-01] MEDS: traMADol HCl 50 MG TAB PO PRN ×2 (02:48→13:01)
[2021-04-01] MEDS: Levothyroxine Sodium 25 MCG TAB PO SCH (05:15)
[2021-04-01] MEDS: Enoxaparin Sodium 40 MG/0.4 ML SYRINGE SC SCH (08:19)
[2021-04-01] MEDS: DULoxetine 60 MG CAP PO SCH (08:20)
[2021-04-01] MEDS: Topiramate 25 MG TAB PO SCH (08:20)
[2021-04-01] MEDS: Polyethylene Glycol 3350 17 GM Packet PO SCH (08:20)
[2021-04-01] MEDS: cloNIDine 0.1 MG TAB PO SCH (08:21)
[2021-04-01] MEDS: Benztropine 1 MG TAB PO SCH (08:21)
[2021-04-01] MEDS: Lactinex Tablet PO SCH (08:21)
[2021-04-01] MEDS: Rosuvastatin 5 MG TAB PO SCH (08:21)
[2021-04-01] MEDS: Gabapentin 300 MG CAP PO SCH ×2 (08:22→14:52)
[2021-04-01] MEDS: Cholecalciferol 1,000 UNITS (25 MCG) TAB PO SCH (08:22)
[2021-04-01] MEDS ORDERED: Senokot S 8.6-50 MG TAB PO SCH (09:00)
[2021-04-01 16:24] VITALS: BP 135/68; TEMP 98.1
== END 2021-04-01 18:52 | DRG 200 ==
LOC: ERS 17:45 → SURG A 20:40
PROVIDERS: ADMIT Surgery; ATTEND Surgery
PROC: 0W9930Z Drainage of Right Pleural Cavity with Drainage Device, Percutaneous Approach (ICD-10-PCS; principal; 2021-03-27)
DX: S27.0XXA Traumatic pneumothorax, initial encounter (principal); S22.41XA Multiple fractures of ribs, right side, initial encounter for closed fracture; S27.321A Contusion of lung, unilateral, initial encounter; J98.11 Atelectasis; E87.1 Hypo-osmolality and hyponatremia; Z20.822 Contact with and (suspected) exposure to COVID-19; F32.9 Major depressive disorder, single episode, unspecified; G25.2 Other specified forms of tremor; G89.29 Other chronic pain; G40.909 Epilepsy, unspecified, not intractable, without status epilepticus; E78.00 Pure hypercholesterolemia, unspecified; G43.909 Migraine, unspecified, not intractable, without status migrainosus; E03.9 Hypothyroidism, unspecified; K21.9 Gastro-esophageal reflux disease without esophagitis; I10 Essential (primary) hypertension; F41.9 Anxiety disorder, unspecified; Z79.899 Other long term (current) drug therapy; V46.5XXA Car driver injured in collision with other nonmotor vehicle in traffic accident, initial encounter; Z90.710 Acquired absence of both cervix and uterus; Z98.51 Tubal ligation status; Z91.040 Latex allergy status; Z88.8 Allergy status to other drugs, medicaments and biological substances; Z87.820 Personal history of traumatic brain injury; Z79.52 Long term (current) use of systemic steroids
CPT/HCPCS: 32551; 36415; 51701; 70450; 71045; 71260; 72125; 74177; 80048; 80053; 80306; 80307; 81003; 81015; 82550; 82607; 82746; 83690; 83735; 84100; 85025; 85610; 85730; 86850; 86900; 86901; 87635; 94640; 96374; 96376; 99292; G0390; J1650; J3010; J7620; Q9967; U0003; U0005

== ENCOUNTER 2021-05-27 06:46 | Outpatient (CLI) | payer MEDICARE | END 2021-05-27 06:47 | disposition home or self-care (01) | LOC: BICMRI 06:46 | PROVIDERS: ATTEND Nurse Practitioner Family | DX: M54.16 Radiculopathy, lumbar region (principal); M48.061 Spinal stenosis, lumbar region without neurogenic claudication; G95.20 Unspecified cord compression | CPT/HCPCS: 72148 ==

== ENCOUNTER 2021-10-03 10:36 | Observation (INO) | payer MEDICARE ==
[2021-10-03 11:20] LABS: #Eosinphils 0.1 thou/uL (0.0-0.7); #Monocytes 0.4 thou/uL (0.11-0.59); #Neutrophils 2.2 thou/uL (1.40-6.50); %Basophils 0.9 % (0.0-1.0); %Eosinophils 2.1 % (0.0-10.0); %Lymphocytes 27.1 % (21.0-51.0); %Monocytes 9.9 % (0.0-10.0); Hemoglobin 11.6 g/dL (12.0-16.0); Mean Corpuscular HGB CONC 31.6 g/dL (32.0-36.0); Mean Corpuscular Hemoglobin 34.3 pg (27.0-31.0); Mean Platelet Volume 6.9 fL (7.4-10.4); Platelet Count 246 thou/uL (130-400); Red Blood Cell (RBC) Count 3.37 mill/uL (4.20-5.40); White Blood Cell (WBC) Count 3.7 thou/uL (4.8-10.8)
[2021-10-03 11:54] LABS: ALT (SGPT) 19 U/L (8-55); AST (SGOT) 48 U/L (5-34); Albumin 3.8 g/dL (3.4-4.8); Alkaline Phosphatase 53 U/L (40-110); Anion Gap 11 mmol/L (10-20); BUN (Urea Nitrogen) 12 mg/dL (9.8-20.1); Bilirubin, Total 0.5 mg/dL (0.2-1.2); Calc. Creatinine Clearance 0 mL/min (70-130); Calcium 9.1 mg/dL (7.8-10.44); Carbon Dioxide 23 mmol/L (23-31); Chloride 110 mmol/L (98-107); Globulin 2.8 g/dL (2.4-3.5); Glucose 106 mg/dL (80-115); Potassium 4.8 mmol/L (3.5-5.1); Protein, Total 6.6 g/dL (5.8-8.1); Sodium 139 mmol/L (136-145)
[2021-10-03 12:03] LABS: Bilirubin Negative (Negative); Blood, Urine Negative (Negative); Clarity Clear (Clear); Glucose, Urine (Dipstick) Normal (Negative); Ketone, Urine Negative (Negative); Leukocyte Negative Leu/uL (Negative); Nitrite Negative (Negative); Protein, Urine (Dipstick) Negative (Neg-Trace); Specific Gravity, Urine 1.005 (1.002-1.036); Urobilinogen Normal mg/dL (Less than 2); pH, Urine 7.5 (5.0-9.0)
[2021-10-03] MEDS ORDERED: Sodium Chloride 0.9% 1,000 ML IV SCH (15:15)
[2021-10-03 15:51] LABS: Troponin I Less than 0.010 ng/mL (< 0.028)
[2021-10-03 15:55] VITALS: BMI 16.9
[2021-10-03 17:47] LABS: Troponin I Less than 0.010 ng/mL (< 0.028)
[2021-10-03] MEDS ORDERED: RISEDRONATE SODIUM 35 MG PO SCH (19:30)
[2021-10-03] MEDS: Topiramate 100 MG TAB PO SCH (20:58)
[2021-10-03] MEDS: DULoxetine 60 MG CAP PO SCH (20:59)
[2021-10-03] MEDS: Colchicine 0.6 MG TAB PO SCH (20:59)
[2021-10-03] MEDS ORDERED: traZODone HCl 50 MG TAB PO SCH (21:00)
[2021-10-03] MEDS: Rosuvastatin 5 MG TAB PO SCH (21:01)
[2021-10-04 06:15] LABS: Cardiac Risk 3.3 (Less than 4.5)
[2021-10-04] MEDS: Levothyroxine Sodium 25 MCG TAB PO SCH (06:15)
[2021-10-04] MEDS ORDERED: GARLIC 1000 MG PO SCH (09:00)
[2021-10-04] MEDS: LACTINEX 1 TAB PO SCH (09:51)
[2021-10-04] MEDS: predniSONE 5 MG TAB PO SCH (09:51)
[2021-10-04] MEDS: Leflunomide 10 mg Tablet PO SCH (09:51)
[2021-10-04] MEDS: Folic Acid 1 MG TAB PO SCH (09:51)
[2021-10-04] MEDS: Polyethylene Glycol 3350 17 GM Packet PO SCH (09:51)
[2021-10-04] MEDS: Enoxaparin Sodium 30 MG/0.3 ML SYRINGE SC SCH (09:51)
[2021-10-04] MEDS: Colchicine 0.6 MG TAB PO SCH ×2 (09:51→22:10)
[2021-10-04] MEDS: Cholecalciferol 1,000 UNITS (25 MCG) TAB PO SCH (09:51)
[2021-10-04] MEDS: Senokot S 8.6-50 MG TAB PO SCH (09:51)
[2021-10-04] MEDS: Citrucel 500 MG TAB PO SCH (09:51)
[2021-10-04] MEDS: DULoxetine 60 MG CAP PO SCH ×2 (09:51→22:11)
[2021-10-04] MEDS: Topiramate 100 MG TAB PO SCH ×2 (09:54→22:11)
[2021-10-04] MEDS: SUMAtriptan Succinate 50 MG TAB PO PRN ×2 (11:49→19:27)
[2021-10-04] MEDS: Fish Oil 1,000 MG CAP PO SCH (11:50)
[2021-10-04 13:36] LABS: SARS-CoV-2 PCR by NAA Not Detected (NotDetected)
[2021-10-04] MEDS: Rosuvastatin 5 MG TAB PO SCH (22:11)
[2021-10-05 05:34] LABS: #Basophils 0.1 thou/uL (0.0-0.2); #Eosinphils 0.1 thou/uL (0.0-0.7); #Lymphocytes 1.3 thou/uL (1.20-3.40); #Monocytes 0.4 thou/uL (0.11-0.59); #Neutrophils 3.4 thou/uL (1.40-6.50); %Lymphocytes 25.1 % (21.0-51.0); %Monocytes 8.3 % (0.0-10.0); %Neutrophils 63.7 % (42.0-75.0); Hemoglobin 11.2 g/dL (12.0-16.0); Mean Corpuscular HGB CONC 33.6 g/dL (32.0-36.0); Mean Corpuscular Hemoglobin 36.3 pg (27.0-31.0); Mean Platelet Volume 6.3 fL (7.4-10.4); Platelet Count 233 thou/uL (130-400); RBC Distribution Width 12.6 % (11.5-14.5); Red Blood Cell (RBC) Count 3.08 mill/uL (4.20-5.40); White Blood Cell (WBC) Count 5.3 thou/uL (4.8-10.8)
[2021-10-05 05:59] LABS: ALT (SGPT) 14 U/L (8-55); AST (SGOT) 18 U/L (5-34); Albumin 3.8 g/dL (3.4-4.8); Alkaline Phosphatase 56 U/L (40-110); Anion Gap 10 mmol/L (10-20); BUN (Urea Nitrogen) 9 mg/dL (9.8-20.1); Bilirubin, Total 0.5 mg/dL (0.2-1.2); CK (CPK) 92 U/L (29-168); Calc. Creatinine Clearance 53 mL/min (70-130); Calcium 8.8 mg/dL (7.8-10.44); Carbon Dioxide 23 mmol/L (23-31); Chloride 110 mmol/L (98-107); Glucose 110 mg/dL (80-115); Potassium 3.5 mmol/L (3.5-5.1); Protein, Total 5.8 g/dL (5.8-8.1); Sodium 139 mmol/L (136-145)
[2021-10-05] MEDS: Levothyroxine Sodium 25 MCG TAB PO SCH (07:17)
[2021-10-05] MEDS: Enoxaparin Sodium 30 MG/0.3 ML SYRINGE SC SCH (08:56)
[2021-10-05] MEDS: predniSONE 5 MG TAB PO SCH (08:57)
[2021-10-05] MEDS: Cholecalciferol 1,000 UNITS (25 MCG) TAB PO SCH (08:57)
[2021-10-05] MEDS: Colchicine 0.6 MG TAB PO SCH (08:57)
[2021-10-05] MEDS: Leflunomide 10 mg Tablet PO SCH (08:57)
[2021-10-05] MEDS: Citrucel 500 MG TAB PO SCH (08:57)
[2021-10-05] MEDS: Topiramate 100 MG TAB PO SCH (08:58)
[2021-10-05] MEDS: LACTINEX 1 TAB PO SCH (08:58)
[2021-10-05] MEDS: DULoxetine 60 MG CAP PO SCH (08:58)
[2021-10-05] MEDS: Senokot S 8.6-50 MG TAB PO SCH (08:58)
[2021-10-05] MEDS: Folic Acid 1 MG TAB PO SCH (08:58)
[2021-10-05] MEDS: SUMAtriptan Succinate 50 MG TAB PO PRN (08:59)
[2021-10-05] MEDS: Polyethylene Glycol 3350 17 GM Packet PO SCH (09:05)
[2021-10-05] MEDS: Fish Oil 1,000 MG CAP PO SCH (12:29)
[2021-10-05 16:04] VITALS: BP 166/96; TEMP 98.1
== END 2021-10-05 17:00 | disposition home or self-care (01) ==
LOC: ERS 10:36 → NEURO 15:43 → 2NO 15:46 → NEURO 15:47
PROVIDERS: ADMIT Hospitalist; ATTEND Family Medicine
DX: R26.0 Ataxic gait (principal); R53.1 Weakness; G89.4 Chronic pain syndrome; R13.10 Dysphagia, unspecified; E03.9 Hypothyroidism, unspecified; R00.0 Tachycardia, unspecified; R41.82 Altered mental status, unspecified; I10 Essential (primary) hypertension; K21.9 Gastro-esophageal reflux disease without esophagitis; E78.00 Pure hypercholesterolemia, unspecified; M81.0 Age-related osteoporosis without current pathological fracture; I08.3 Combined rheumatic disorders of mitral, aortic and tricuspid valves; Z87.820 Personal history of traumatic brain injury; Z79.899 Other long term (current) drug therapy; Z88.0 Allergy status to penicillin; Z88.6 Allergy status to analgesic agent; Z88.8 Allergy status to other drugs, medicaments and biological substances; Z91.040 Latex allergy status; Z91.018 Allergy to other foods; Z20.822 Contact with and (suspected) exposure to COVID-19
CPT/HCPCS: 70450; 70551; 71045; 74230; 80053; 80061; 81003; 82550; 82607; 82746; 83605; 83735; 84484 ×2; 85025; 85379; 87040; 87086; 93005; 93306; 93880; 95712; 95819; 95957; 96372 ×2; 97116 ×2; 97139 ×4; 97530 ×2; 99285; G0378 ×4; U0003; U0005; 36415; 84443; J1650; J7512

== ENCOUNTER 2021-10-26 13:15 | Outpatient (CLI) | payer MEDICARE | END 2021-10-26 13:16 | disposition home or self-care (01) | LOC: BICMAMMO 13:15 | PROVIDERS: ATTEND Student in an Organized Health Care Education/Training Program | DX: Z12.31 Encounter for screening mammogram for malignant neoplasm of breast (principal); Z80.3 Family history of malignant neoplasm of breast | CPT/HCPCS: 77063; 77067 ==

== ENCOUNTER 2022-06-23 07:19 | Outpatient (CLI) | payer OTHER ==
[2022-06-23] MEDS ORDERED: Iopamidol-370 76% 500 ML 1 ML ONE (10:35)
== END 2022-06-23 07:20 | disposition home or self-care (01) ==
LOC: BICCT 07:19
PROVIDERS: ATTEND Physician Assistant Medical
DX: R11.2 Nausea with vomiting, unspecified (principal); K21.9 Gastro-esophageal reflux disease without esophagitis
CPT/HCPCS: 74177; 82565; Q9967

== ENCOUNTER 2022-10-05 14:13 | Outpatient (CLI) | payer OTHER | END 2022-10-05 14:14 | disposition home or self-care (01) | LOC: ULT 14:13 | PROVIDERS: ATTEND Student in an Organized Health Care Education/Training Program | DX: N95.0 Postmenopausal bleeding (principal); Z90.710 Acquired absence of both cervix and uterus | CPT/HCPCS: 76856 ==

== ENCOUNTER 2022-11-29 12:36 | Outpatient (CLI) | payer MEDICARE | END 2022-11-29 12:37 | disposition home or self-care (01) | LOC: BICMAMMO 12:36 | PROVIDERS: ATTEND Student in an Organized Health Care Education/Training Program | DX: Z12.31 Encounter for screening mammogram for malignant neoplasm of breast (principal); Z80.3 Family history of malignant neoplasm of breast | CPT/HCPCS: 77063; 77067 ==

== ENCOUNTER 2023-02-01 12:38 | Outpatient (CLI) | payer MEDICARE, OTHER | END 2023-02-01 12:39 | disposition home or self-care (01) | LOC: MRI 12:38 → BICMRI 12:39 | PROVIDERS: ATTEND Psychiatry & Neurology Neurology | DX: R27.0 Ataxia, unspecified (principal); F07.81 Postconcussional syndrome; S09.90XS Unspecified injury of head, sequela | CPT/HCPCS: 70551 ==

== ENCOUNTER 2024-01-23 12:44 | Outpatient (CLI) | payer MEDICARE, OTHER | END 2024-01-23 12:45 | disposition home or self-care (01) | LOC: BICMAMMO 12:44 | PROVIDERS: ATTEND Family Medicine | DX: Z12.31 Encounter for screening mammogram for malignant neoplasm of breast (principal); Z80.3 Family history of malignant neoplasm of breast | CPT/HCPCS: 77063; 77067 ==